=== PATIENT | female | born 1950 | race Caucasian/White ===

== ENCOUNTER → 2017-03-05 | Outpatient (CLI) | payer MEDICARE ==
[~2017-03-05] MED LIST: AMLO10TA2 PO; ASPI325T17 PO; CIPR500T87 PO; CYCL-259 PO; CYCL1DRO EACHEYE; FLUO40CA9 PO; FLUT12HF2 INH; FURO80TA3 PO; HYDR-3307 PO; IMIP50TA3 PO; LEVA15HF4 INH; LOSA100T6 PO; METH-356 PO; MONT10TA9 PO; NITR0.4T28 SL; POTA20TA91 PO; TOPI100T8 PO
== END | disposition home or self-care (01) ==
LOC: CVU 08:07
PROVIDERS: ATTEND Internal Medicine Cardiovascular Disease
DX: I51.7 Cardiomegaly (principal); I10 Essential (primary) hypertension; J45.909 Unspecified asthma, uncomplicated
CPT/HCPCS: C8929

== ENCOUNTER → 2018-03-17 | Outpatient (CLI) | payer MEDICARE ==
[~2018-03-17] MED LIST changes: -AMLO10TA2 PO; +AMLO10TA6 PO; +CPAP INH; +EYE RELIEF EACHEYE; +Equate PO; +IBUP-1223 PO; -LOSA100T6 PO; +LOSA100T7 PO; +MINE3.5O4 EACHEYE; +Oxygen INH; +ROSU20TA PO; +TROL35.4 TP; +VALS320T2 PO; +[UNRECOGNIZED DRUG - OTHER] INH
== END | disposition home or self-care (01) ==
LOC: CFH 10:15
PROVIDERS: ATTEND Internal Medicine Cardiovascular Disease
DX: R60.0 Localized edema (principal); I82.409 Acute embolism and thrombosis of unspecified deep veins of unspecified lower extremity; M79.89 Other specified soft tissue disorders; J44.9 Chronic obstructive pulmonary disease, unspecified; Z88.2 Allergy status to sulfonamides

== ENCOUNTER → 2018-03-29 | Outpatient (CLI) | payer MEDICARE | END | disposition home or self-care (01) | LOC: CVU 08:58 | PROVIDERS: ATTEND Internal Medicine Cardiovascular Disease | DX: I07.1 Rheumatic tricuspid insufficiency (principal); I35.8 Other nonrheumatic aortic valve disorders | CPT/HCPCS: 93306 ==